=== PATIENT | female | born 1975 | race Caucasian/White ===

== ENCOUNTER 2025-08-04 13:36 | Emergency (ER) | payer SELFPAY ==
[~2025-08-04] VITALS: Ht 170.2 cm; Wt 73.9 kg
[2025-08-04 14:23] LABS: PLATELET COUNT (AUTO) 266 K/uL (150-450); RED BLOOD CELL COUNT(AUTO) 4.79 MIL/uL (4.0-5.2); RED CELL DISTRIBUTION WIDTH 15.2 % (11.5-15.0); WHITE BLOOD COUNT (AUTO) 4.3 K/uL (4.3-11.0)
[2025-08-04 14:29] LABS: CALCIUM, SERUM 9.3 mg/dL (8.5-10.1); CREATININE 0.7 mg/dL (0.6-1.3); SODIUM SERUM 141 mmol/L (136-145); UREA NITROGEN, BLOOD 13 mg/dL (7-18)
[2025-08-04] MEDS ORDERED: ASPIRIN EC 325 MG TABLET.DR PO ONE (15:02)
[2025-08-04] MEDS: ASPIRIN EC 325 MG TABLET.DR PO ONE (15:05)
[2025-08-04] MEDS ORDERED: AZIT250T13 PO (16:39)
[2025-08-04] MEDS ORDERED: IBUP-1490 PO (16:39)
[2025-08-04 16:43] VITALS: BP 115/66; TEMP 98.3; O2SAT 98
== END 2025-08-04 16:43 | disposition home or self-care (01) ==
LOC: ER 13:50
DX: R07.89 Other chest pain (principal); J45.909 Unspecified asthma, uncomplicated; R10.20 Pelvic and perineal pain unspecified side; R06.02 Shortness of breath; Z87.09 Personal history of other diseases of the respiratory system; Z88.0 Allergy status to penicillin
CPT/HCPCS: 36415; 71045-TC; 80048-TC; 83880; 84484-TC; 84702-TC; 85025-TC